=== PATIENT | female | born 1965 | race Caucasian/White ===

== ENCOUNTER → 2019-06-15 | Outpatient (CLI) | payer OTHER, SELFPAY ==
--- NOTE | 2019-06-15 15:00 | CT_ITS ---
STUDY: CT CHEST WITHOUT CONTRAST REASON FOR EXAM: Female, 53 years old. Lung nodule RADIATION DOSAGE (If Supplied By Facility): CTDIvol = ( 5.94 ) mGy, DLP = ( 197.11 ) mGycm TECHNIQUE: Transaxial imaging was performed without the administration of intravenous contrast material. Individualized dose optimization techniques were used for this CT. COMPARISON: None. FINDINGS: Thickened nodular scarring at the posterior left lung base measuring up to 6 mm in transverse dimension.. Pleural-based nodule at the left lateral lung base measuring 5 mm. Severe emphysematous change of the lungs. No confluent airspace infiltrate. There is no demonstrated pleural abnormality. Normal heart and pericardium. Normal mediastinum. Normal hilar regions. Normal unenhanced pulmonary arteries. Normal aorta arch and descending thoracic aorta. Normal osseous structures. There is no demonstrated abnormality of the visualized upper abdomen. CT/Chest without Contrast IMPRESSION: 1. 5 mm pleural-based nodule at the left lateral lung base. 2. Nodular thickening at the posterior left lung base measuring up to 6 mm 3. Severe emphysematous change of the lungs. Electronically Signed: Adrián Mansfield MD at 5:01 EDT Tel , Service support ,
== END | disposition home or self-care (01) ==
LOC: CT 14:57
PROVIDERS: Family Provider Family Medicine; PCP Family Medicine; Referring Provider Internal Medicine Pulmonary Disease; Visit Provider Internal Medicine Pulmonary Disease
DX: R91.1 Solitary pulmonary nodule (principal)
CPT/HCPCS: 71250

== ENCOUNTER → 2020-09-05 13:01 | Outpatient (CLI) | payer OTHER, SELFPAY ==
--- NOTE | 2020-09-05 13:04 | CT_ITS ---
STUDY: CT CHEST WITHOUT CONTRAST REASON FOR EXAM: Female, 55 years old. LUNG NODULE RADIATION DOSAGE (If Supplied By Facility): CTDIvol = ( 5.51 ) mGy, DLP = ( 216.45 ) mGycm TECHNIQUE: Transaxial imaging was performed without the administration of intravenous contrast material. Multiplanar coronal and sagittal images were reformatted. Individualized dose optimization techniques were used for this CT. COMPARISON: None. FINDINGS: Hyperinflation. Diffuse emphysematous changes with centrilobular emphysema worse in the upper lobes. New 3.7 mm noncalcified nodule in the right posterior middle lobe adjacent to the major fissure. Stable scarring in the left lower lobe with a 1.1 cm linear density which is pleural-based. This most likely represents scarring. This is unchanged. Stable 6 mm nodule in the posterior left lung base. Stable 5 mm pleural-based nodule in the left lower lobe laterally. There is no demonstrated pleural abnormality. There are calcifications of the coronary arteries. Normal mediastinum. Normal hilar regions. Normal unenhanced pulmonary arteries. Normal aorta arch and descending thoracic aorta. There are multi-level degenerative changes of the thoracic spine. There is no demonstrated abnormality of the visualized upper abdomen. CT/Chest without Contrast IMPRESSION: Stable examination except for a new 3.7 mm noncalcified nodule in the right posterior middle lobe adjacent to the fissure. Electronically Signed: Reji García, at 14:28 EDT , Service support ,
== END ==
PROVIDERS: PCP Nurse Practitioner Family; Referring Provider Internal Medicine Pulmonary Disease; Visit Provider Internal Medicine Pulmonary Disease
DX: R91.1 Solitary pulmonary nodule (principal)
CPT/HCPCS: 71250

== ENCOUNTER → 2021-03-24 12:52 | Outpatient (CLI) | payer OTHER, SELFPAY ==
--- NOTE | 2021-03-24 12:56 | CT_ITS ---
STUDY: CT CHEST WITHOUT CONTRAST REASON FOR EXAM: Female, 55 years old. History of pulmonary nodules. RADIATION DOSAGE (If Supplied By Facility): CTDIvol = ( 6.04 ) mGy, DLP = ( 249.24 ) mGycm TECHNIQUE: Transaxial imaging was performed without the administration of intravenous contrast material. Multiplanar coronal and sagittal images were reformatted. Individualized dose optimization techniques were used for this CT. COMPARISON: Comparison is made with prior study 09/05/2020 and 06/15/2019. FINDINGS: Hyperinflation. Diffuse emphysematous changes with evidence of centrilobular emphysema worse in the upper lobes. Stable 3.5 mm noncalcified nodule in the posterior aspect of the right middle lobe adjacent to the right major fissure. Stable linear scarring in the left lower lobe. In its distal aspect of the linear scarring there is a stable 1.1 cm linear density. This most likely is associated with a linear scar. Stable 6 mm noncalcified nodule in the left lower lobe. There is no demonstrated pleural abnormality. There are calcifications of the coronary arteries. Normal mediastinum. Normal hilar regions. Normal unenhanced pulmonary arteries. There is atherosclerotic calcification of the aortic arch. There are multi-level degenerative changes of the thoracic spine. There is no demonstrated abnormality of the visualized upper abdomen. CT/Chest without Contrast IMPRESSION: Diffuse emphysema with centrilobular changes. Stable small nodules in the lungs as well as linear density at the left lung base. Electronically Signed: Reji García MD at 13:43 EDT , Service support ,
== END ==
LOC: CT 12:54
PROVIDERS: PCP Nurse Practitioner Family; Referring Provider Internal Medicine Pulmonary Disease; Visit Provider Internal Medicine Pulmonary Disease
DX: R91.8 Other nonspecific abnormal finding of lung field (principal)
CPT/HCPCS: 71250